=== PATIENT | female | born 1970 | race Caucasian/White ===

== ENCOUNTER 2023-06-09 09:43 | Day surgery (SDC) | payer OTHER ==
[~2023-06-09] VITALS: Ht 154.9 cm; Wt 83.9 kg
[2023-06-09] MEDS ORDERED: SEVOFLURANE 15 MIN GAS INH ONE (11:07)
[2023-06-09] MEDS ORDERED: MIDAZOLAM HCL 2 MG/2 ML VIAL (VERSED) ONE (11:07)
[2023-06-09] MEDS ORDERED: LR 1,000 ML IV.SOLN IV ONE (11:07)
[2023-06-09] MEDS ORDERED: fentaNYL CITRATE/PF 100 MCG/2 ML AMP ONE (11:07)
[2023-06-09] MEDS ORDERED: PROPOFOL 200MG/ 20ML VIAL (DIPRIVAN) IV ONE (11:07)
[2023-06-09] MEDS ORDERED: ONDANSETRON HCL 4 MG/2 ML VIAL ONE (11:07)
[2023-06-09] MEDS ORDERED: METOCLOPRAMIDE HCL 10 MG/2 ML VIAL IVP PRN (11:30)
[2023-06-09] MEDS ORDERED: ONDANSETRON HCL 4 MG/2 ML VIAL IVP PRN (11:30)
[2023-06-09] MEDS ORDERED: HYDROmorphone 1 MG/ML INJ. CARTRIDGE IVP PRN (11:30)
[2023-06-09] MEDS ORDERED: IBUPROFEN 800 MG TABLET PO PRN (11:30)
[2023-06-09] MEDS ORDERED: KETOROLAC TROMETHAMINE 30 MG VIAL IVP PRN (11:30)
[2023-06-09 12:09] VITALS: O2SAT 99
[2023-06-09 15:25] VITALS: BP_SYST 116; PULSE 72; RESP 20
== END 2023-06-09 14:06 | disposition home or self-care (01) ==
LOC: SDS 09:43 → SMU 09:44 → SDS 14:06
PROVIDERS: ATTEND Obstetrics & Gynecology
DX: N95.0 Postmenopausal bleeding (principal); I10 Essential (primary) hypertension; J45.909 Unspecified asthma, uncomplicated; M19.90 Unspecified osteoarthritis, unspecified site; Z98.891 History of uterine scar from previous surgery; Z79.899 Other long term (current) drug therapy
CPT/HCPCS: 87081; 58558; J3465; J2405; J2704; J3010; J7120